=== PATIENT | female | born 1990 | race Caucasian/White ===

== ENCOUNTER 2021-05-20 17:38 | Emergency (ER) | payer BC, SELFPAY ==
[2021-05-20 17:39] VITALS: BP 118/68; PULSE 65; RESP 14; TEMP 36.6; O2SAT 100
--- NOTE | 2021-05-20 17:57 | ED.ABDPAIN ---
HPI - Abdominal Pain General Chief Complaint: Abdominal Pain Stated Complaint: Abd pain Time Seen by Provider: 05/20/21 17:48 Source: patient Mode of arrival: ambulatory Limitations: no limitations History of Present Illness HPI narrative: 30-year-old female presents today with complaints of pelvic pressure with urination. Patient states it is not painful to urinate just a crampy pressure feeling. Feeling started last night. Patient denies fevers, increased frequency, back pain, hematuria, or . Patient has an IUD placed about 2 years ago. Patient has had no issues with the IUD. Patient states she does spot off and on. Related Data Allergies Allergy/AdvReac Type Severity Reaction Status Date / Time No Known Allergies Allergy Unverified 04/21/21 15:05 Review of Systems Review of Systems: All systems reviewed & are unremarkable except as noted in HPI and below Constitutional: Constitutional: Reports as per HPI Genitourinary: Genitourinary: Reports as per HPI, Denies hematuria, Denies nocturia, Denies dysuria, Denies flank pain and Denies urinary incontinence Musculoskeletal: Musculoskeletal: Reports no additional musculoskeletal complaints [facility] Family History Family History Mother Patient's mother is in good health Father Patient's father is in good health Sibling Patient's brother is in good health Social History Social History Smoking status: Never smoker Second hand tobacco smoke exposure: No Alcohol intake: never Exam Const: General: healthy appearing, no acute distress and alert Orientation/consciousness: patient oriented x3 HENMT: Head: normal to inspection Eyes: Conjunctivae: conjunctivae normal Pupils: Equal, round and reactive pupils present Neck: Neck: normal visual inspection Chest: Chest palpation & inspection: normal inspection of the chest Resp: Effort & Inspection: normal respiratory effort Auscultation: clear to auscultation bilaterally Cardio: Rate: regular rate Rhythm: regular rhythm GI: GI Palp: Yes Tenderness to palpation present (GI) (Umbilical region tenderness which is a chronic issue) and pelvic tenderness) Auscultation: normal bowel sounds : General: Yes bladder normal to palpation and Yes no CVA tenderness Skin: General skin exam: normal color Neuro: General: patient oriented x3 and moves all extremities Psych: Appearance: well kempt Mental Status: mental status grossly normal Thought content: Yes Normal thought content present Course Course Emergency Course: Results reviewed with patient. Patient will be discharged home on antibiotics, Pyridium, and Diflucan if needed. Patient in agreement with plan of care. Patient aware to follow-up with primary in 1 week or sooner if needed and return with any new or worsening symptoms. Patient received first dose of antibiotics and Pyridium here due to pharmacy being closed. Vital Signs Vital signs: Vital Signs Temperature 36.6 C 05/20/21 17:39 Pulse Rate 65 05/20/21 17:39 Respiratory Rate 14 05/20/21 17:39 Blood Pressure 118/68 05/20/21 17:39 Pulse Oximetry 100 05/20/21 17:39 Temperature 36.6 C 05/20/21 17:39 Pulse Rate 78 05/20/21 18:55 Respiratory Rate 18 05/20/21 18:55 Blood Pressure 102/78 05/20/21 18:55 Pulse Oximetry 98 05/20/21 18:55 MDM - Abdominal Pain Differential Diagnosis Differential diagnosis: Likely abdominal pain and other (UTI,) Medical Records Attestation: I reviewed the patient's medical records. Lab Data Attestation: I reviewed the patient's lab results. Result diagrams: 05/20/21 17:52 05/20/21 17:53 Labs: Lab Results 05/20/21 05/20/21 05/20/21 Range/Units 17:52 17:53 18:20 WBC 8.6 (4.5-10.0) K/mm3 RBC 4.36 (4.2-5.4) M/mm3 Hgb 13.7 (12.0-15.0) g/dL Hct 42.2 (37.0-47.0) %
[2021-05-20 18:03] LABS: Basophils Percent Auto 0.5 % (0.2-1.2); Eosinophils Absolute Auto 0.2 K/mm3 (0-0.3); Eosinophils Percent Auto 1.9 % (0-4.4); Hematocrit 42.2 % (37.0-47.0); Hemoglobin 13.7 g/dL (12.0-15.0); Immature Granulocyte Absolute 0.03 K/mm3 (0.00-0.031); Immature Granulocyte Percent A 0.4 % (0-0.5); Lymphocytes Absolute Auto 2.16 K/mm3 (0.9-3.2); Lymphocytes Percent Auto 25.3 % (18.3-44.2); Mean Corpuscular HGB Conc 32.5 g/dl (32-36); Mean Corpuscular Hemoglobin 31.4 pg (26-34); Mean Corpuscular Volume 96.8 fl (80-100); Mean Platelet Volume 12.3 fl (7.4-10.4); Monocytes Absolute Auto 0.7 K/mm3 (0.1-0.6); Monocytes Percent Auto 8.7 % (2.6-8.5); Neutrophils Absolute Auto 5.4 K/mm3 (1.3-6.7); Neutrophils Percent Auto 63.2 % (45.5-73.1); Platelet Count Result 169 k/mm3 (150-375); Red Blood Count 4.36 M/mm3 (4.2-5.4); Red Cell Distribution Width 12.4 % (11.5-14.5); White Blood Count 8.6 K/mm3 (4.5-10.0)
[2021-05-20 18:16] LABS: Alanine Aminotransferase 12 U/L (4-35); Albumin Level 4.7 g/dL (3.5-5.1); Alkaline Phosphatase 73 U/L (38-126); Anion Gap 8 mmol/L (8-16); Aspartate Amino Transferase 30 U/L (14-36); Bilirubin,Total 0.3 mg/dL (0.2-1.3); Blood Urea Nitrogen 19 mg/dL (7-17); Calcium 8.7 mg/dL (8.4-10.2); Carbon Dioxide 26 mmol/L (22-30); Chloride 106 mmol/L (98-107); Estimated CRCL calculation 76 ml/min; Estimated Glomerular Filt Rate > 60; Glucose 92 mg/dL (65-110); Lipase 119 U/L (23-300); Potassium 3.8 mmol/L (3.4-5.0); Sodium 140 mmol/L (137-145)
[2021-05-20 18:48] LABS: Add Urine Microscopic? YES; Appearance Urine Cloudy (Clear); Bacteria Urine Trace /hpf; Bilirubin Urine Negative (Negative); Blood Urine 2+ (Negative); Color Urine Yellow (Yellow); Glucose Urine UA Negative (Negative); Ketones Urine Negative (Negative); Leukocyte Esterase Ur 1+ LEU/UL (Negative); Mucus Urine Few /lpf; Nitrate Urine Negative (Negative); Protein Urine Negative (Negative); Specific Grav Ur 1.028 (1.001-1.035); Squamous Epithelial Cell Urine Moderate /hpf (Few); Urobilinogen Urine Negative mg/dL (<2.0)
[2021-05-20 18:55] VITALS: BP 102/78; PULSE 78; RESP 18; O2SAT 98
[2021-05-20] MEDS: PHENAZOPYRIDINE HCL 100 MG TABLET 200 MG PO (19:11)
== END 2021-05-20 19:14 | disposition home or self-care (01) ==
PROVIDERS: Emergency Medicine; Emergency Provider Nurse Practitioner Family; PCP Internal Medicine
DX: N39.0 Urinary tract infection, site not specified (principal); Z97.5 Presence of (intrauterine) contraceptive device
CPT/HCPCS: 36415; 80053; 81001; 81025; 83690; 85025; 99283; A9270

== ENCOUNTER 2021-10-15 00:34 | Day surgery (SDC) | payer OTHER, SELFPAY ==
[2021-10-09 15:09] VITALS: BMI 24.2
--- NOTE | 2021-10-09 15:20 | PC.NURSE ---
Report to the Outpatient Waiting Room, entrance under the green pavilion located off [facility], at time 0930 on date __10/15/21_. OR Time: __1130 . - You and your visitor will be asked to self-screen and do not enter if you have any COVID symptoms. - Only one visitor and NO children visitors are allowed at this time. - The patient visitor is requested to leave or wait in car when not with patient due to restrictions. - A mask is required within the hospital. Patients may have clear liquids (water, carbonated beverages, clear teas, apple juice) until 3 hours prior to surgery with a maximum of 20 ounces. - No food from midnight until time of surgery - Infants may have breast milk until 4 hours before surgery, infant formula 6 hours prior to surgery. - Children will be allowed to drink immediately following surgery. If applicable, please bring a bottle or sippy cup to assist with drinking. Juice, water, soda, and popsicles are readily available. For infants on formula, please bring formula the day of surgery. Pacifiers are allowed. Take the following medications with a SIP of water the morning of surgery: n/a Medications to discontinue per physician __n/a Date to take last dose Please no make-up, nail greek, hairspray, perfume, deodorant, or body powder the day of surgery. No jewelry (including any body piercings) or valuables the day of surgery, leave them at home. Please take a shower or bath the night before, or the morning of, surgery with an antibacterial soap. Wear comfortable, loose fitting clothing. Children are encouraged to wear pajamas. - Jewelry must be removed prior to entering the operating room. Rings and piercings that are not removed may be cut off. - The hospital will not accept responsibility for valuables. - Please leave all valuables, including medications, at home the day of surgery. If you are going home after surgery, a licensed peg driver must drive you home. - NO public transportation without another adult. - We recommend that an adult stay with you for 24 hours following discharge. - We also recommend that you do not drive, make important decision, drink alcoholic beverages, or take any drugs that were not prescribed by your health care provider for at least 24 hours after your discharge time. For Pediatric surgeries, we recommend two adults accompany the child home (only one inside the building at this time). Follow any additional instructions given to you from your surgeon. If you or anyone in your household have experienced Covid symptoms in the past week, please notify your surgeon or the nurse liaison at the phone number below for possible testing. Telephone instructions given to _patient_and asked if any additional questions and then verbalized understanding. Patient advised to call surgeon office or pre surgery nurse liaison [phone] if any additional questions.
--- NOTE | 2021-10-14 18:30 | PM.IMHP ---
H&P: HPI History of Present Illness Date/Time: 10/14/21 18:30 31-year-old 2 para 2002 female presents for evaluation of pelvic pain. She has had pelvic pain for years and also an IUD in place which she has desired removal for though she is unsure what she would like to proceed with this far as control. She has had a prior laparoscopic evaluation with endometriosis diagnosed though not pathologically found. Also has had a laparoscopic appendectomy in the past. Recent ultrasound revealed IUD to be in the uterine cavity, and right ovarian 5-6 cm complex cyst. Presents today for removal of IUD as well as laparoscopic evaluation and removal of right adnexal cyst. Chief Complaint: 1. Retained IUD 2. Right ovarian cyst Review of Systems Review of Systems: All systems reviewed & are unremarkable except as noted in HPI and below PMFSH Family History Family History Mother Patient's mother is in good health Father Patient's father is in good health Sibling Patient's brother is in good health Social History Social History Smoking status: Never smoker Second hand tobacco smoke exposure: No Alcohol intake: never Living arrangements: alone Spiritual care concerns: No Meds Home Medications and Allergies Home Medications Medication Instructions Recorded Confirmed Type No Home Medications 10/09/21 10/09/21 History Allergies Allergy/AdvReac Type Severity Reaction Status Date / Time No Known Allergies Allergy Unverified 05/29/21 09:46 Exam Const: General: cooperative, healthy appearing and comfortable Resp: Effort & Inspection: normal respiratory effort Auscultation: clear to auscultation bilaterally Cardio: Rate: regular rate Rhythm: regular rhythm GI: Inspection: normal to inspection Auscultation: normal bowel sounds : External Female Exam: normal external appearance Speculum Exam - Vagina: normal appearance of the vagina Speculum Exam - Cervix: normal appearance of the cervix ( IUD string noted) Bimanual exam- vagina & uterus: Uterine tenderness Bimanual Exam- Adnexa, other: tender ( and fullness on the right) Assessment and Plan Assessment and plan (1) Ovarian cyst, right: Code(s): N83.201 - Unspecified ovarian cyst, right side Status: Acute Assessment and Plan: laparoscopic right ovarian cystectomy (2) Retained intrauterine contraceptive device (IUD): Code(s): T83.39XA - Other mechanical complication of intrauterine contraceptive device, initial encounter Status: Acute Assessment and Plan: hysteroscopic removal of IUD
[2021-10-15] VITALS (9 sets, daily range): BP systolic 97–120; BP diastolic 52–81; PULSE 51–73; RESP 12–20; TEMP 36.1–36.9; O2SAT 100
[2021-10-15] MEDS: ACETAMINOPHEN 500 MG TABLET 1000 MG PO (08:54)
[2021-10-15] MEDS: LACTATED RINGERS 1,000 ML 30 ML IV CONT (09:00)
[2021-10-15] MEDS: KETOROLAC 15 MG/ML VIAL (*BKC) IV PUSH (09:05)
--- NOTE | 2021-10-15 09:41 | P.PNAN_ITS ---
Anes - Initial Pre Proc Eval Procedure: Operation Date: 10/15/21 10:00 Proposed Procedures p Laparoscopic Right Ovarian Cystectomy, Hysteroscopy with Intrauterine Device Removal - Steven Carter MD Date/Time: 10/15/21 09:41 Surgeon: Steven Carter MD Pre Op Diagnosis: right ovarian cyst, Retained IUD Patient Data Age: 31 Gender: F Height: 1.68 m Weight: 52.1 kg Last Vital Signs Temp 36.9 C 10/15/21 08:14 Pulse 67 10/15/21 08:14 Resp 16 10/15/21 08:14 BP 120/64 10/15/21 08:14 Pulse Ox 100 10/15/21 08:14 O2 Del Method Room Air 10/15/21 08:14 Allergies Allergy/AdvReac Type Severity Reaction Status Date / Time No Known Allergies Allergy Unverified 10/15/21 08:53 Home Medications Medication Instructions Recorded Confirmed Type No Home Medications 10/09/21 10/15/21 History Patient hx anesthesia problems: none Family hx anesthesia problems: none Results Review: All pre-operative results and documents have been reviewed as part of the pre- operative evaluation. [facility] Past Medical History Medical History (Updated 10/15/21 @ 09:41 by Rich Meehan MD) Endometriosis Surgical History Surgical History (Updated 10/15/21 @ 09:41 by Rich Meehan MD) H/O laparoscopy History of appendectomy Family History Family History Mother Patient's mother is in good health Father Patient's father is in good health Sibling Patient's brother is in good health Social History Social History Smoking status: Never smoker Second hand tobacco smoke exposure: No Alcohol intake: never Living arrangements: alone Spiritual care concerns: No Anes - Eval Final PreProcedure Day of Procedure 10/15/21 09:41 Patient weight: thin Heart: regular rate and rhythm Lungs: clear to auscultation Airway: Mallampati scale class 1 Neurological: alert and oriented Last oral intake: >/= 8 hours ASA classification: I Emergent: no Anesthetic plan: proceed Anesthesia type and monitoring: general ETT and standard monitoring Results Review: All pre-operative results and documents have been reviewed as part of the pre- operative evaluation. Informed Consent: The patient's anesthetic plan and its attendant risks and benefits were discussed with the patient/family/POA. Questions were solicited and answers provided to the satisfaction of the patient/family/POA.
--- NOTE | 2021-10-15 10:54 | WPDHPUPDATE1 ---
History and Physical Update Update Date/Time: 10/15/21 10:54 History and Physical has been reviewed, including an updated exam of the patient. There are NO changes in the patient's condition. Risks, benefits, and alternatives have been discussed and questions answered. Patient agrees to proceed with procedure.
--- NOTE | 2021-10-15 12:43 | W.PM.PROC2 ---
Procedure Note - Detailed Date of Procedure 10/15/21 Pre-op Diagnosis right ovarian cyst, Retained IUD Post-op Diagnosis Same Procedure Performed 1. Laparoscopic right ovarian cystectomy 2. Removal of IUD (no hysteroscope) Surgeon Steven Carter MD Anesthesia General Findings uterus tubes and ovaries without abnormality other than evidence of right ovarian cyst. No other significant pathology was noted in the abdominal cavity. Hysteroscopy was not performed as the IUD was readily removed without the hysteroscopic assistance. Description of Procedure Patient was prepped in the usual manner for this procedure. While placing the cervical instruments for use later in the case long curved Jazmín was placed in the endocervical canal and the IUD was removed without difficulty. At this point attention was placed the abdomen or periumbilical incision was made under direct visualization with findings as noted above. Left and right lower quadrant incisions were then made and the right ovary was inspected and using the Harmonic scalpel incised over the ovarian cyst. Cyst was drained of [id number] of clear fluid, and cyst wall was removed. Agustín was empirically placed in the bed of the biopsy site the other was no significant bleeding. Gas was allowed to escape seizures were approximated using 4-0 Monocryl in the patient was sent to recovery room in stable condition Estimated Blood Loss 10 Drains No Packing No Pathology Yes Complications No immediate complications Disposition PACU [facility] Billing Surgery - Charge Forward: Surgery Billing
[2021-10-15] MEDS: fentaNYL CITRATE INJ (*CRX) 100 MCG/2 ML VIAL 25 MCG IV PUSH ×2 (13:15→13:18)
--- NOTE | 2021-10-15 13:26 | SUR.PHASEI ---
1325: Simple mask removed.
== END 2021-10-15 15:15 | disposition home or self-care (01) ==
PROVIDERS: PCP Internal Medicine; Visit Provider Obstetrics & Gynecology
PROC: 0UDB8ZZ Extraction of Endometrium, Via Natural or Artificial Opening Endoscopic (ICD-10-PCS; CPT 58558; principal; 2021-10-15 10:00)
DX: N83.201 Unspecified ovarian cyst, right side (principal); Z30.432 Encounter for removal of intrauterine contraceptive device
CPT/HCPCS: 58301; 58662; 88305; A9270; J1885; J2250; J3010; J7120

== ENCOUNTER 2022-02-19 01:26 | Day surgery (SDC) | payer OTHER, SELFPAY ==
[2022-02-04 15:21] VITALS: BMI 18.7
--- NOTE | 2022-02-04 15:24 | SUR.PREOP ---
Report to the Outpatient Waiting Room, entrance under the green pavilion located off [facility], at time _0730 on date _02/19/22 . Planned Procedure Time: . Time changes happen often and if your time is changed the preop area will call you the afternoon before. - You and your visitor will be asked to self-screen and do not enter if you have any COVID symptoms. - Only one visitor is requested with a max of two and NO children visitors are allowed at this time. - The patient visitor may be requested to leave or wait in car when not with patient due to distancing restrictions. - A mask is optional within the hospital. Patients may have clear liquids (water, carbonated beverages, clear teas, apple juice) until 3 hours prior to surgery with a maximum of 20 ounces. - No food from midnight until time of surgery - Infants may have breast milk until 4 hours before surgery, formula 6 hours prior to surgery. - Children will be allowed to drink immediately following surgery. If applicable, please bring a bottle or sippy cup to assist with drinking. Juice, water, soda, and popsicles are readily available. For infants on formula, please bring formula the day of surgery. Pacifiers are allowed. Take the following medications with a SIP of water the morning of surgery: __n/a Medications to discontinue per physician ___multivitamin Date to take last dose__02/16/22 Please no make-up, nail faroese, hairspray, perfume, deodorant, or body powder the day of surgery. No jewelry (including any body piercings) or valuables the day of surgery, leave them at home. Please take a shower or bath the night before, or the morning of, surgery with an antibacterial soap. Wear comfortable, loose fitting clothing. Children are encouraged to wear pajamas. - Jewelry must be removed prior to entering the operating room. Rings and piercings that are not removed may be cut off. - The hospital will not accept responsibility for valuables. - Please leave all valuables, including medications, at home the day of surgery. If you are going home after surgery, a licensed rear load truck driver must drive you home. - NO public transportation without another adult if you receive anesthesia. - We recommend that an adult stay with you for 24 hours following discharge. - We also recommend that you do not drive, make important decision, drink alcoholic beverages, or take any drugs that were not prescribed by your health care provider for at least 24 hours after your discharge time. For Pediatric surgeries, we recommend two adults accompany the child home. Follow any additional instructions given to you from your surgeon. If you or anyone in your household have experienced Covid symptoms in the past week, please notify your surgeon or the nurse liaison at the phone number below for possible testing. Telephone instructions given to _shaylee red and asked if any additional questions and then verbalized understanding. Patient advised to call surgeon office or pre surgery nurse liaison [phone] if any additional questions.
--- NOTE | 2022-02-18 14:04 | PM.IMHP ---
H&P: HPI History of Present Illness Date/Time: 02/18/22 14:04 31-year-old female 3 para 2012 presents for tubal ligation. We have discussed the permanence failure rate increased risk of regret and ectopic and she strongly desires to proceed. Other nonpermanent measures were also discussed and declined. Chief Complaint: Undesired fertility Review of Systems Review of Systems: All systems reviewed & are unremarkable except as noted in HPI and below PMFSH Past Medical History Medical History Anxiety and depression Encounter for IUD insertion 08/24/12 Mirena insertion Encounter for IUD removal 10/15/21 Mirena removal in [place] Endometriosis Surgical History Surgical History History of appendectomy (~2017) History of intestinal surgery (~11/2017) History of laparoscopy 02/17/12 dx lscope/bx and fulguration of endometriosis on bladder/peritoneum History of ovarian cystectomy (10/15/21) 10/15/21 lscope rt ovarian cystectomy/IUD removal History of tonsillectomy (~1999) Family History Family History Mother Patient's mother is in good health Father Patient's father is in good health Sibling Patient's brother is in good health Other Carcinoma of colon uncle Social History Social History Smoking status: Never smoker Second hand tobacco smoke exposure: No Alcohol intake: never Substance use: never Substance use type: does not use Living arrangements: with family Additional living arrangements comments: 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 Gender identity (if verbalized by the patient): Female Sexual Orientation (if Verbalized by the Patient): Straight or Heterosexual Spiritual care concerns: No Meds Home Medications and Allergies Home Medications Medication Instructions Recorded Confirmed Type multivitamin 1 cap PO DAILY 02/04/22 02/04/22 History Allergies Allergy/AdvReac Type Severity Reaction Status Date / Time No Known Allergies Allergy Verified 12/16/21 17:05 Exam Const: General: cooperative and healthy appearing Resp: Effort & Inspection: normal respiratory effort Auscultation: clear to auscultation bilaterally Cardio: Rate: regular rate Rhythm: regular rhythm GI: Inspection: normal to inspection Auscultation: normal bowel sounds : External Female Exam: normal external appearance Speculum Exam - Vagina: normal appearance of the vagina Speculum Exam - Cervix: normal appearance of the cervix Bimanual exam- vagina & uterus: normal bimanual exam Bimanual Exam- Adnexa, other: normal adnexae Assessment and Plan Assessment and plan (1) Encounter for female sterilization procedure: Code(s): Z30.2 - Encounter for sterilization Status: Acute Assessment and Plan: proceed with laparoscopic evaluation and bilateral tubal ligation via electrocautery.
[2022-02-19] VITALS (8 sets, daily range): BP systolic 97–132; BP diastolic 55–75; PULSE 59–75; RESP 14–20; TEMP 36.7–36.8; O2SAT 100
--- NOTE | 2022-02-19 07:50 | WPDHPUPDATE1 ---
History and Physical Update Update Date/Time: 02/19/22 07:50 History and Physical has been reviewed, including an updated exam of the patient. There are NO changes in the patient's condition. Risks, benefits, and alternatives have been discussed and questions answered. Patient agrees to proceed with procedure.
[2022-02-19] MEDS: ACETAMINOPHEN 500 MG TABLET 1000 MG PO (07:58)
[2022-02-19] MEDS: LACTATED RINGERS 1,000 ML 30 ML IV CONT (08:20)
[2022-02-19] MEDS: KETOROLAC 15 MG/ML VIAL (*BKC) IV PUSH (08:23)
--- NOTE | 2022-02-19 08:26 | WPDANESEPPF ---
Anes - Initial Pre Proc Eval Procedure: Operation Date: 02/19/22 09:30 Proposed Procedures p Laparoscopic Bilateral Tubal Ligation - Steven Carter MD Date/Time: 02/19/22 08:26 Surgeon: Steven Carter MD Pre Op Diagnosis: Desire Sterilization Patient Data Age: 31 Gender: F Height: 1.68 m Weight: 52.8 kg Last Vital Signs Temp 36.7 C 02/19/22 07:46 Pulse 59 L 02/19/22 07:46 Resp 16 02/19/22 07:46 BP 97/55 L 02/19/22 07:46 Pulse Ox 100 02/19/22 07:46 O2 Del Method Room Air 02/19/22 07:46 Allergies Allergy/AdvReac Type Severity Reaction Status Date / Time No Known Allergies Allergy Verified 02/19/22 07:55 Home Medications Medication Instructions Recorded Confirmed Type multivitamin 1 cap PO DAILY 02/04/22 02/19/22 History Patient hx anesthesia problems: none Family hx anesthesia problems: none Results Review: All pre-operative results and documents have been reviewed as part of the pre-operative evaluation. [facility] Past Medical History Medical History Anxiety and depression Encounter for IUD insertion 08/24/12 Mirena insertion Encounter for IUD removal 10/15/21 Mirena removal in [place] Endometriosis Surgical History Surgical History History of appendectomy (~2017) History of intestinal surgery (~11/2017) History of laparoscopy 02/17/12 dx lscope/bx and fulguration of endometriosis on bladder/peritoneum History of ovarian cystectomy (10/15/21) 10/15/21 lscope rt ovarian cystectomy/IUD removal History of tonsillectomy (~1999) Family History Family History Mother Patient's mother is in good health Father Patient's father is in good health Sibling Patient's brother is in good health Other Carcinoma of colon uncle Social History Social History Smoking status: Never smoker Second hand tobacco smoke exposure: No Alcohol intake: never Substance use: never Substance use type: does not use Living arrangements: with family Additional living arrangements comments: 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 Gender identity (if verbalized by the patient): Female Sexual Orientation (if Verbalized by the Patient): Straight or Heterosexual Spiritual care concerns: No Anes - Eval Final PreProcedure Day of Procedure 02/19/22 08:26 Patient weight: thin Heart: regular rate and rhythm Lungs: clear to auscultation Airway: Mallampati scale class 1 Last oral intake: >/= 8 hours ASA classification: I Emergent: no Anesthetic plan: proceed Anesthesia type and monitoring: general ETT and standard monitoring Results Review: All pre-operative results and documents have been reviewed as part of the pre-operative evaluation. Informed Consent: The patient's anesthetic plan and its attendant risks and benefits were discussed with the patient/family/POA. Questions were solicited and answers provided to the satisfaction of the patient/family/POA.
--- NOTE | 2022-02-19 09:41 | W.PM.PROC2 ---
Procedure Note - Detailed Date of Procedure 02/19/22 Pre-op Diagnosis Desire Sterilization Post-op Diagnosis Same Procedure Performed Laparoscopic bilateral tubal ligation via electrocautery Surgeon Steven Carter MD Anesthesia General Description of Procedure Patient prepped and draped in usual manner for this procedure. Cervical instruments were placed for uterine mobility throughout the case. At this point abdominal trocar sites were marked and placed under direct visualization. Using the bipolar cautery both tubes were grasped in [address] and desiccated both visually as well as by the electronic monitor. Gas was allowed to escape, incisions approximated after the trocars removed 4-0 Monocryl. Patient was sent to recovery room in stable condition. Estimated Blood Loss 10 Drains No Packing No Pathology None sent Complications No immediate complications Condition Stable Disposition PACU [facility] Billing Surgery - Charge Forward: Surgery Billing
== END 2022-02-19 11:30 | disposition home or self-care (01) ==
PROVIDERS: PCP Internal Medicine; Visit Provider Obstetrics & Gynecology
PROC: (CPT 58671; principal; 2022-02-19 09:30)
DX: Z30.2 Encounter for sterilization (principal)
CPT/HCPCS: 58670; A9270; J0330; J1100; J1170; J1885; J2250; J2405; J2704; J3010; J7120